=== PATIENT | female | born 1995 | race Two or more races ===

== ENCOUNTER 2016-04-09 14:31 | Emergency (ER) | payer SELFPAY ==
--- NOTE | 2016-04-09 16:01 | RAD ---
HISTORY: Pain status post fall yesterday. Initial encounter. COMPARISON: None. TECHNIQUE: four views of Left knee. FINDINGS: Bones: No fracture or dislocation. Minimal patellofemoral spurring is present. Joints: Normal. Soft tissue: No joint effusion. IMPRESSION: No fracture or dislocation.
[2016-04-09] MEDS ORDERED: ACETAMINOPHEN 500 MG TABLET ONE (16:04)
== END 2016-04-09 16:40 | disposition home or self-care (01) ==
LOC: ED 14:31
DX: M25.562 Pain in left knee (principal); W01.0XXA Fall on same level from slipping, tripping and stumbling without subsequent striking against object, initial encounter; Y93.01 Activity, walking, marching and hiking; Y92.29 Other specified public building as the place of occurrence of the external cause
CPT/HCPCS: 73564; 99283 ×2; A9270